=== PATIENT | female | born 1965 | race Caucasian/White ===

== ENCOUNTER 2017-09-15 17:51 | Inpatient (IN) | payer OTHER ==
[~2017-09-15] VITALS: Ht 167.6 cm; Wt 65.7 kg
[2017-09-15 17:54] VITALS: BP 137/62
[2017-09-15] MEDS ORDERED: SYNTHROID50 MCG PO (18:30)
[2017-09-15] MEDS ORDERED: VIVELLE-DOT1 EAC3 TRANSDERM (18:31)
[2017-09-15] MEDS ORDERED: ATIVAN1 MG PO (18:31)
[2017-09-15] MEDS ORDERED: AMBIEN 5 MG TABL5 M1 PO (18:32)
[2017-09-15 19:28] LABS: ABSOLUTE NEUTROPHILS 3.9 thou/uL (1.4-8.2); EOSINOPHILS 2.6 % (0.0-3.0); HEMATOCRIT 35.9 % (37.0-47.0); HEMOGLOBIN 12.1 gm/dL (12.0-15.0); LYMPHOCYTES 27.4 % (24.0-44.0); MCHC 33.6 g/dL (28.0-37.0); MCV 95.4 fL (80.0-100.0); MONOCYTES 8.7 % (1.0-8.0); PLATELET COUNT 167 thou/uL (150-400); POLYS 60.3 % (36.0-66.0); RBC 3.76 mil/uL (4.20-5.00); RDW 13.8 % (10.5-14.5); WBC 6.5 thou/uL (4.0-11.0)
[2017-09-15 19:36] LABS: ANION GAP 5 mmol/L (7-16); BUN 24 mg/dL (7-18); CHLORIDE 104 mmol/L (98-107); CO2 29 mmol/L (21-32); CREATININE 0.8 mg/dL (0.6-1.0); GLUCOSE 90 mg/dL (74-106); POTASSIUM 4.1 mmol/L (3.5-5.1); SODIUM 138 mmol/L (136-145)
[2017-09-15 19:36] LABS: URINE BILIRUBIN NEGATIVE (Negative); URINE BLOOD NEGATIVE (Negative); URINE CLARITY CLEAR; URINE COLOR YELLOW; URINE GLUCOSE-RANDOM* NEGATIVE (Negative); URINE KETONES NEGATIVE (Negative); URINE LEUKOCYTES NEGATIVE (Negative); URINE NITRITE NEGATIVE (Negative); URINE PROTEIN (DIPSTICK) NEGATIVE (Negative); URINE UROBILINOGEN 0.2 E.U./dl (0.2-1.0)
[2017-09-15 19:41] LABS: ALBUMIN 3.9 g/dL (3.4-5.0); DIRECT BILIRUBIN < 0.1 mg/dL (<0.1-0.3); LIPASE 186 U/L (73-393); SGOT 16 U/L (15-37); SGPT 25 U/L (30-65); TOTAL BILIRUBIN 0.2 mg/dL (<0.1-1.0); TOTAL PROTEIN 7.1 g/dL (6.4-8.2)
[2017-09-15 23:07] VITALS: BP 105/68
[2017-09-15 23:18] VITALS: BP 116/71
[2017-09-16 03:05] VITALS: BP 92/57
[2017-09-16 07:17] VITALS: BP 91/52
[2017-09-16] MEDS ORDERED: HYDROCODONE-AP1 EAC6 PO (14:46)
[2017-09-16 15:36] VITALS: BP 91/52
[2017-09-16 16:13] VITALS: BP 82/51
[2017-09-16 18:19] VITALS: BP 91/52
[2017-09-16 18:26] VITALS: BP 91/52
== END 2017-09-16 18:00 | disposition home or self-care (01) | DRG 392 ==
LOC: ER 17:51 → EROBS 21:23 → 4S 21:23 → ENTRNSPT 09-16 18:10
PROVIDERS: Emergency Medicine
PROC: 05H933Z Insertion of Infusion Device into Right Brachial Vein, Percutaneous Approach (ICD-10-PCS; principal; 2017-09-15)
DX: K52.9 Noninfective gastroenteritis and colitis, unspecified (principal); K50.90 Crohn's disease, unspecified, without complications; E03.9 Hypothyroidism, unspecified; F41.9 Anxiety disorder, unspecified; K90.0 Celiac disease; Z80.1 Family history of malignant neoplasm of trachea, bronchus and lung; Z95.0 Presence of cardiac pacemaker; Z88.6 Allergy status to analgesic agent; Z88.0 Allergy status to penicillin; Z88.8 Allergy status to other drugs, medicaments and biological substances; Z91.040 Latex allergy status; Z90.710 Acquired absence of both cervix and uterus
CPT/HCPCS: 10195; 27001